=== PATIENT | female | born 1960 | race Caucasian/White ===

== ENCOUNTER 2016-09-25 08:20 | Day surgery (SDC) | payer OTHER ==
[~2016-09-25] VITALS: Ht 157.5 cm; Wt 79.4 kg
[2016-09-25 08:58] VITALS: BP 101/53
[2016-09-25 12:10] VITALS: BP 93/63
== END 2016-09-25 11:05 | disposition home or self-care (01) ==
LOC: GI 08:20 → OR 10:30 → GI 10:30
PROVIDERS: Internal Medicine Gastroenterology
PROC: 0DBP8ZZ Excision of Rectum, Via Natural or Artificial Opening Endoscopic (ICD-10-PCS; principal; 2016-09-25 08:30)
DX: Z12.11 Encounter for screening for malignant neoplasm of colon (principal); D12.8 Benign neoplasm of rectum; Z80.0 Family history of malignant neoplasm of digestive organs
CPT/HCPCS: 45378; J1200; J1610; J2250; J2310; J3010; J3490